=== PATIENT | male | born 2000 | race Caucasian/White ===

== ENCOUNTER 2019-07-30 22:33 | Emergency (ER) | payer OTHER ==
[~2019-07-30] VITALS: Ht 170.2 cm; Wt 54.4 kg
== END 2019-07-31 00:27 | disposition home or self-care (01) ==
LOC: ED 22:33
DX: R56.9 Unspecified convulsions (principal); F17.200 Nicotine dependence, unspecified, uncomplicated
CPT/HCPCS: 70450; 80053; 81001; 85025; 99285-25; G0480